=== PATIENT | female | born 1955 | race Caucasian/White ===

== ENCOUNTER → 2016-04-25 | Outpatient (CLI) | payer BC ==
[~2016-04-25] MED LIST: VITAMIN D PO
== END | disposition home or self-care (01) ==
LOC: C.MAMM 07:46
PROVIDERS: ATTEND Family Medicine
DX: M85.80 Other specified disorders of bone density and structure, unspecified site (principal); Z78.0 Asymptomatic menopausal state

== ENCOUNTER → 2016-07-10 | Day surgery (SDC) | payer BC ==
[2016-06-28 14:01] VITALS: Ht 165.1 cm; Wt 65.9 kg
[~2016-07-10] VITALS: Ht 165.1 cm; Wt 65.9 kg
[~2016-07-10] MED LIST changes: +500ML BSSPLUS 0.5ML EPI1:1000 IRRIG ONE; +ACETAMINOPHEN 325 MG TAB PO PRN; +ATROPINE SULFATE 0.1 MG/ML 5ML SYR IV PRN; +ATROPINE SULFATE 1% OP OINT PER APPLICATION CHARGE ONE; +BSS FLUSH ONE; +BUPIVACAINE HCL 0.75% 10 ML AMP/VIAL ONE; +CEFAZOLIN SOD 1 GM VIAL ONE; +DEXAMETHASONE SOD INJ 4 MG/ML VIAL ONE; +EpHEDrine SULFATE INJ 50 MG/ML AMP IV PRN; +EpINEphrine INJ 1MG/ML AMP 1 MG/ML AMP ONE; +FENTANYL CITRATE INJ 50 MCG/1 ML 2 ML VIAL IV PRN; +FENTANYL CITRATE INJ 50 MCG/1 ML 2 ML VIAL ONE; +HYALURONIDASE HUMAN 150 UNIT/ML INJ ONE; +INDOCYANINE GREEN 25 MG/10 ML ONE; +LACTATED RINGER'S 1000ML 500 ML IV SCH; +LIDOCAINE HCL 2% 2 ML VIAL (20MG/ML) ONE; +LIDOCAINE MPF 4% INJ INJ ONE; +MIDAZOLAM HCL 1 MG/ML 2ML VIAL ONE; +NEOMYCIN/POLYMYX/DEXAMETH OP OINT PER APP CHARGE ONE; +OCUCOAT 1 ML SOLN IO ONE; +ONDANSETRON INJ 2 MG/ML 2 ML VIAL IV PRN; +PHENYLEPHRINE HCL 10% OP SOLN PER DROP CHARGE ONE; +PROPARACAINE 0.5% OP SOLN PER DROP CHARGE OPR SCH; +PROPOFOL IV EMULSION 10 MG/ML 20 ML VIAL IV ONE; +TIMOLOL MALEATE 0.5% OP SOLN PER DROP CHARGE ONE
--- NOTE | 2016-07-10 09:49 | History & Physical Bridge - [place] ---
H&P Re-Evaluation Bridge Note: pt has a macular hole in the right eye and is here for vitrectomy of the right eye. I have examined the patient, reviewed the History & Physical and in the interval since the performance of the History & Physical I have noted the following changes of clinical significance: No changes noted
[2016-07-10] MEDS: PHENYLEPHRINE HCL 2.5% OP SOLN PER DROP CHARGE OPR SCH ×2 (10:54→10:59)
[2016-07-10] MEDS: TROPICAMIDE 1% OP SOLN PER DROP CHARGE OPR SCH ×2 (10:55→11:00)
--- NOTE | 2016-07-10 12:51 | [facility] Operative Report ---
Operative Report Date of Service Jul 10, 2016. Operative Report PREOPERATIVE DIAGNOSIS: Macular hole, right eye. ICD10 CODE: H35.341 POSTOPERATIVE DIAGNOSIS: same. PROCEDURE: 1. Pars plana vitrectomy, 23 gauge. 2. Membrane peeling of the internal limiting membrane. 3. Fluid-air exchange. 4. Air-gas exchange w/ SF6 20 %. All to the right eye. CPT CODE: 68986 SURGEON: Baljinder Woodard D.O. COMPLICATIONS: None. ESTIMATED BLOOD LOSS: None. SPECIMENS: None. ANESTHESIA: Retrobulbar block and MAC. INDICATIONS FOR PROCEDURE: The patient has a macular hole that is visually significant. Vitrectomy surgery is indicated to decrease risk of vision loss and potentially improve vision. CONSENT: The risks, benefits and alternatives were discussed with the patient including but not limited to decreased visual acuity, failure to achieve desired results, loss of the eye, infection, pain, glaucoma, lens changes, retinal tears, retinal detachment, the need for more procedures, drooping of the eyelid, blindness, and double vision. The patient is aware of risks and consents to the surgery. Consent is signed and on the chart. OPERATION AND FINDINGS: The patient was brought to the operating room where the patient was identified by name, date, and medical record number. The surgical site was confirmed with the informed written consent. The patient was sedated by the anesthesiology team after which a 50:50 mixture of 4% lidocaine and 0.75% bupivacaine with hyaluronidase was administered in a standard retrobulbar fashion. A total of 4 ml was administered without difficulty. The patient was then prepped and draped in the usual sterile manner for retinal surgery. A wire lid speculum was placed and an Zak 23-gauge trocar cannula system was employed. The inferior temporal trocar cannula was first placed in an angled fashion 3.75mm posterior to the surgical limbus and the infusion cannula was inserted into this cannula after which the intravitreal position was verified prior to turning the infusion on. Two more trocar cannulas were then inserted in an angled fashion, one in the superior temporal, and one in the superior nasal quadrant both 3.75mm posterior to the surgical limbus. A light pipe and vitrector were then introduced into the eye and the BIOM wide angle viewing system was brought into place. Standard core vitrectomy was performed and the vitreous was insured to be totally detached from the posterior pole with the aid of the vitrector. Next 0.05ml of indocyanine green was placed over the macular surface to stain the internal limiting membrane. This was washed from the eye after 10 seconds. At this point a flat contact lens was placed on the surface of the eye and a flex scraper and ILM forceps were then used to gently peel the internal limiting membrane surrounding the macular hole without difficulty. At this point scleral depression was performed for 360 degrees and no retinal tears or detachments were noted. A soft tip cannula was used to perform a fluid- air exchange. Next, SF6 20% was injected in through the infusion cannula for a complete gas fill of the eye. The trocar cannulas were then removed and found to be air tight. The intraocular pressure was found to be within normal limits by palpation and subconjunctival injections of Kefzol and dexamethasone were administered inferiorly and superiorly. The wire lid speculum was removed. Maxitrol and timolol were applied to the surface of the eye. A light patch and shield were taped over the surface of the eye and the patient left the Operating Room in stable condition having tolerated the procedure well. DISPOSITION: A gas bracelet was placed on the patients wrist. The patient was instructed to maintain a face down position overnight. The patient is to call immediately if there are any problems overnight. I attest to the content of the Intraoperative Record and any orders documented therein. Any exceptions are noted below.
--- NOTE | 2016-07-10 12:54 | Discharge Instructions-SurgCtr ---
Discharge Instructions Date of Service Jul 10, 2016. Visit Reason for Visit: Right Eye Macular Hole Discharge Discharge Diagnosis / Problem: same Discharge Goals Goal(s): Improve function Activity Recommendations Activity Limitations: per Instructions/Follow-up section Anesthesia . Post Anesthesia Instructions: If you have had General Anesthesia or IV Sedation: * Do not drive today. * Resume driving when surgeon permits. * Do not make important decisions or sign legal documents today. * Call surgeon for: 1. Temperature elevations greater than 101 degrees F. 2. Uncontrollable pain. 3. Excessive bleeding. 4. Persistent nausea and vomiting. 5. Medication intolerance (nausea, vomiting or rash). * For nausea and vomiting use only clear liquids such as: tea, soda, bouillon until nausea subsides, then gradually increase diet as tolerated. * If you have any concerns or questions, call your surgeon's office. If physician is unavailable and it is an emergency, call 911 or go to the nearest emergency room. . Instructions / Follow-Up Instructions / Follow-Up * May take Tylenol if needed for discomfort. * Do NOT lay flat on back and position head as follows: face down/ chin down as much as possible. Sleep left side down with head turned toward floor or sleep on stomach with head turned to right. * Do NOT remove green bracelet until instructed to do so by your surgeon and follow these precautions: * No air travel * No travel above 2500 feet * No nitrous oxide (N2O). * Do NOT remove eye shield. * NO straining, heavy lifting (>15 pounds) or bending below waist. * Avoid getting water or soap directly into operative eye. * Do NOT rub eye. If you experience increasing eye pain not relieved by medication, please contact us immediately at [phone]. If you are unable to reach someone at the above number, call [phone] and ask to speak with the EYE DOCTOR SALES CLERK FOOD. Inform them that you are a Dr. Woodard patient who had recent surgery. Diet Recommendations Home Diet: resume previous diet Procedures Procedures Performed: Right Eye 23 Gauge Vitrectomy with SF6 Gas Insertion Pending Studies Studies pending at discharge: no Medical Emergencies . Who to Call and When: Medical Emergencies: If at any time you feel your situation is an emergency, please call 911 immediately. . Non-Emergent Contact Non-Emergency issues call your: Tariff Supervisor . . "Provider Documentation" section prepared by Baljinder Woodard.
[2016-07-10 12:55] VITALS: TEMP 36.3
[2016-07-10 13:19] VITALS: BP 115/79; PULSE 68; O2SAT 97
--- NOTE | 2016-07-10 13:29 | Anesthesia Progress Nt - [facility] ---
Anesthesia Post Op Note Date & Time Jul 10, 2016 at 13:28 Vital Signs Pain Intensity: 0 Vital Signs Past 12 Hours Date Time Temp Pulse Resp B/P Pulse Ox O2 Delivery O2 Flow Rate FiO2 07/10/16 13:19 68 18 115/79 97 Room Air 07/10/16 12:55 36.3 70 18 109/73 97 Room Air 07/10/16 10:48 36.4 77 18 117/82 97 Room Air Notes Mental Status: alert / awake / arousable, participated in evaluation Pt Amnestic to Procedure: Yes Nausea / Vomiting: adequately controlled Pain: adequately controlled Airway Patency, RR, SpO2: stable & adequate BP & HR: stable & adequate Hydration State: stable & adequate Anesthetic Complications: no major complications apparent
== END | disposition home or self-care (01) ==
LOC: X.SURG 10:25
PROVIDERS: ATTEND Ophthalmology
DX: H35.341 Macular cyst, hole, or pseudohole, right eye (principal); E78.5 Hyperlipidemia, unspecified

== ENCOUNTER → 2016-12-21 | Outpatient (CLI) | payer BC ==
[~2016-12-21] MED LIST changes: -500ML BSSPLUS 0.5ML EPI1:1000 IRRIG ONE; -ACETAMINOPHEN 325 MG TAB PO PRN; -ATROPINE SULFATE 0.1 MG/ML 5ML SYR IV PRN; -ATROPINE SULFATE 1% OP OINT PER APPLICATION CHARGE ONE; -BSS FLUSH ONE; -BUPIVACAINE HCL 0.75% 10 ML AMP/VIAL ONE; -CEFAZOLIN SOD 1 GM VIAL ONE; -DEXAMETHASONE SOD INJ 4 MG/ML VIAL ONE; -EpHEDrine SULFATE INJ 50 MG/ML AMP IV PRN; -EpINEphrine INJ 1MG/ML AMP 1 MG/ML AMP ONE; -FENTANYL CITRATE INJ 50 MCG/1 ML 2 ML VIAL IV PRN; -FENTANYL CITRATE INJ 50 MCG/1 ML 2 ML VIAL ONE; -HYALURONIDASE HUMAN 150 UNIT/ML INJ ONE; -INDOCYANINE GREEN 25 MG/10 ML ONE; -LACTATED RINGER'S 1000ML 500 ML IV SCH; -LIDOCAINE HCL 2% 2 ML VIAL (20MG/ML) ONE; -LIDOCAINE MPF 4% INJ INJ ONE; -MIDAZOLAM HCL 1 MG/ML 2ML VIAL ONE; -NEOMYCIN/POLYMYX/DEXAMETH OP OINT PER APP CHARGE ONE; -OCUCOAT 1 ML SOLN IO ONE; -ONDANSETRON INJ 2 MG/ML 2 ML VIAL IV PRN; -PHENYLEPHRINE HCL 10% OP SOLN PER DROP CHARGE ONE; -PROPARACAINE 0.5% OP SOLN PER DROP CHARGE OPR SCH; -PROPOFOL IV EMULSION 10 MG/ML 20 ML VIAL IV ONE; -TIMOLOL MALEATE 0.5% OP SOLN PER DROP CHARGE ONE
--- NOTE | 2016-12-21 16:20 | MAMMOGRAPHY REPORT ---
BILATERAL DIGITAL SCREENING MAMMOGRAM WITH CAD: 12/21/2016 CLINICAL HISTORY: Routine screening. Patient has no complaints. TECHNIQUE: Current study was also evaluated with a Computer Aided Detection (CAD) system. Bilateral CC and MLO views were obtained. COMPARISON: Comparison is made to exams dated: 07/21/2014 mammogram, 02/14/2013 mammogram, 07/05/2011 m ammogram, 06/09/2010 mammogram, 01/28/2010 mammogram, and 04/13/2009 ultrasound - [facility] enter. BREAST COMPOSITION: There are scattered areas of fibroglandular density in both breasts. FINDINGS: No suspicious masses, calcifications, or areas of architectural distortion are noted in ei ther breast. There has been no significant interval change compared to prior exams. Bilateral benign -appearing calcifications are not significantly changed. IMPRESSION: ACR BI-RADS CATEGORY 2: BENIGN There is no mammographic evidence of malignancy. A 1 year screening mammogram is recommended. The pa tient will receive written notification of the results. Approximately 10% of breast cancers are not detected with mammography. A negative mammographic report should not delay biopsy if a clinically suggestive mass is present. Brunilda Mendenhall M.D. /:12/21/2016 15:12:50 Cross Country Coach: Shayna LARA,Lou, M, [facility] letter sent: Normal 1/2 BI-RADS Code: ACR BI-RADS Category 2: Benign
== END | disposition home or self-care (01) ==
LOC: C.MAMM 14:52
PROVIDERS: ATTEND Family Medicine
DX: Z12.31 Encounter for screening mammogram for malignant neoplasm of breast (principal)

== ENCOUNTER 2018-11-08 06:29 | Inpatient (IN) ==
--- NOTE | 2018-10-07 08:06 | PAT Medication Instructions ---
Medication Instructions Date of Service October 07, 2018 Home Medications ibuprofen [Advil] 600 mg PO QAM ASK your surgeon for instructions ibuprofen [Advil] 600 mg PO QAM Take morning of surgery NOTHING TO EAT OR DRINK AFTER MIDNIGHT Other Notes If you have any questions please call us at [phone] or [phone] or [phone] or [phone]
--- NOTE | 2018-10-07 11:44 | Anesthesiology Consultation ---
Date of Service October 07, 2018 Assessment & Plan (1) Encounter for pre-operative examination: Chart Review Chart Review: Acceptable Risk for Surgery and Patient seen in Pre Admission Testing Consults Requested none Teaching & Discussion Pre-Anesthesia Teaching/Discussion Notes: Instructed NPO after midnight before surgery, except medications with 15 cc of water. Medication instructions provided according to the PAT guidelines. History Surgery Operation Date: 11/08/18 08:50 Proposed Procedures p Left Anterior Total Hip Replacement - Yoan Díaz DO Height/Weight Height: 5 ft 5 in Weight: 68.4 kg Allergies Allergy/AdvReac Type Severity Reaction Status Date / Time erythromycin base Allergy Unknown GI ILLNESS Verified 10/02/18 09:25 aspirin AdvReac Nose Bleed Verified 10/02/18 09:25 Medications Home Medications Medication Instructions Recorded Confirmed Last Taken ibuprofen [Advil] 600 mg PO QAM 10/02/18 10/02/18 Unknown Past Medical History Medical History Osteoarthritis Exercise / Class Metabolic Activity II 4-5 Yardwork/Stairs/Walk up hill (Rode bike 70 miles last week. Gardening. Not walking much due to hip. Able to climb FOS. Denies CP or SOB. ) Past Surgical History Surgical History History of arthroscopy of right knee History of cataract surgery History of colonoscopy History of dilatation and curettage History of surgery REPAIR OF MACULAR TEAR - RT EYE Nausea and vomiting after administration of anesthetic agent Past Anesthesia History No Hx of Anesthesia Complications and No Family Hx of Anesthesia Complications History of PONV No Hx of Motion Sickness and History of PONV Social History Smoking Status: Never smoker Do You Dip or Chew Tobacco: No Hx Alcohol Use: Yes Alcohol type: beer, wine and hard liquor alcohol intake frequency: a few times a week Hx Substance Use: No substance use type: does not use Review of Systems Patient denies chest pain, shortness of breath, dyspnea on exertion, reflux, cough, wheezing, palpitations. +Joint Pain (Hip) Physical Exam Vital Signs BP: 115/79 P: 69 R: 16 T: 98.5 SPO2: 97% on RA ENMT Thyromental Distance: < 3.5 Finger Breadths (3) Mallampati Class: I Neck normal visual inspection and trachea midline; neck extension not limited Respiratory normal respiratory effort Auscultation: lungs clear to auscultation bilaterally Cardiovascular Rate/Rhythm: regular rate and regular rhythm Heart Sounds: no murmur Vessels: no carotid bruit Neurologic moves all extremities Psychiatric Orientation: alert and oriented x 3 Testing Laboratory Results 10/07/18 11:58 10/07/18 11:58 PT 10.2 Seconds (9.0-12.0) 10/07/18 11:58 INR 1.0 (0.9-1.1) 10/07/18 11:58 APTT 24.7 Seconds (21.0-31.0) 10/07/18 11:58 Blood Type O Positive 10/07/18 11:58 Antibody Screen NEGATIVE 10/07/18 11:58 Electrocardiogram Date: 07/22/18 Findings: + NSR @ (65) and + no change from (06/28/16) Chest X-Ray Date: 10/07/18 Findings: + NAD
[2018-10-07 12:34] LABS: Basophils # (auto) 0.02 K/uL (0-0.2); Basophils % (auto) 0.4 %; Eosinophils % (auto) 2.2 %; Hematocrit (blood only) 39.6 % (37-47); Hemoglobin 13.1 g/dL (12.0-16.0); Immature Granulocytes # (auto) 0.01 K/uL (0.00-0.02); Immature Granulocytes % (auto) 0.2 %; Lymphocytes % (auto) 30.4 %; Mean Corpuscular Hgb Conc 33.1 g/dL (32-36); Mean Platelet Volume 10.4 fL (7.4-10.4); Monocytes # (auto) 0.54 K/uL (0.11-0.59); Monocytes % (auto) 11.7 %; Neutrophils # (auto) 2.54 K/uL (1.4-6.5); Neutrophils % (auto) 55.1 %; Platelet Count 197 K/uL (130-400); RDW Coefficient of Variation 12.9 % (11.5-14.5); RDW Standard Deviation 41.6 fL (36.4-46.3); White Blood Count 4.61 K/uL (4.8-10.8)
--- NOTE | 2018-10-07 12:37 | XRay Report ---
XR chest Pre-admission PA/Lat CLINICAL HISTORY: Preoperative chest COMPARISON STUDY: No previous studies for comparison. FINDINGS: The cardiac and mediastinal contours are normal. There is no evidence of focal pulmonary co nsolidation. There is no evidence of failure. No pleural effusions are visualized.[ IMPRESSION: No active disease in the chest. Electronically signed by: William Molina M.D. 10/07/2018 12:35 PM
[2018-10-07 12:48] LABS: Partial Thromboplastin Ratio 0.9; Partial Thromboplastin Time 24.7 Seconds (21.0-31.0); Prothrombin Time 10.2 Seconds (9.0-12.0)
[2018-10-07 14:23] LABS: BUN Creatinine Ratio 20.2 (10-20); Calcium 8.6 mg/dl (8.5-10.1); Creatinine Clr Calc Pharmacy 51.5 ml/min; Est GFR (African American) 70.2; Est GFR (Non-African American) 60.5; Potassium 4.6 mmol/L (3.5-5.1)
--- NOTE | 2018-11-06 07:32 | History & Physical Report ---
Date of Service November 06, 2018 Assessment & Plan (1) Osteoarthritis of left hip: We will proceed with a left anterior total hip arthroplasty. Postoperatively she will be placed on aspirin for DVT prophylaxis. I am aware of her allergy but she said she had a mild nosebleed once in the past. She is willing to take the aspirin. She will be kept overnight in the hospital for postoperative medical management. She will use energy physical therapy upon discharge. Present on Admission?: Yes History of Present Illness Chief Complaint: Primary osteoarthritis of the left hip Primary Care Provider: Troy Benites MD Ivy is a pleasant 63-year-old female who is been dealing with a several year history of chronic left hip and groin pain. X-rays and clinical examination have been diagnostic for primary osteoarthritis of the left hip. After failing conservative treatment, she has elected to proceed with a left total hip arthroplasty. Allergies Allergy/AdvReac Type Severity Reaction Status Date / Time erythromycin base Allergy Unknown GI ILLNESS Verified 10/02/18 09:25 aspirin AdvReac Nose Bleed Verified 10/02/18 09:25 Home Medications Home Medications Medication Instructions Recorded Confirmed Type ibuprofen [Advil] 600 mg PO QAM 10/02/18 10/02/18 History Past Med/Surg History Medical History Osteoarthritis Surgical History History of arthroscopy of right knee History of cataract surgery History of colonoscopy History of dilatation and curettage History of surgery REPAIR OF MACULAR TEAR - RT EYE Nausea and vomiting after administration of anesthetic agent Social History Preferred Language: Amharic Communication Ability: Effective Senior Wind Energy Consultant Required: No Beliefs That Will Affect Care: None Current Living Situation: Spouse Other Information That Helps Us Care for You: No Feels Safe at Home: Yes Safety Concerns: Feels Safe At This Time Smoking Status: Never smoker Do You Dip or Chew Tobacco: No Second Hand Exposure: Yes ( A CHILD) Hx Alcohol Use: Yes Alcohol type: beer, wine and hard liquor Hx Substance Use: No Review of Systems All systems reviewed & are unremarkable except as noted in HPI & below Physical Exam Constitutional: WD/WN, vitals as above Eyes: PERRL, conjunctivae normal, anicteric sclerae ENMT: external ear and nose normal, oropharynx normal Neck: trachea midline, no thyromegaly Respiratory: normal respiratory effort Cardiovascular: RRR, no murmur, no edema Gastrointestinal (Abdomen): normal bowel sounds, soft, nontender, no hepatosplenomegaly Musculoskeletal: Physical examination of the left hip reveals decreased range of motion with flexion, internal and external rotation. There is significant groin pain with forced internal rotation of the hip his leg lengths are essentially equal. Psychiatric: A+Ox3, euthymic affect Results & Data Diagnostic Findings Radiographs of the left hip and pelvis demonstrate advanced osteoarthritis with joint space narrowing osteophyte formation and [id number] articulation.
[~2018-11-08 06:29] MED LIST changes: +ACETAMINOPHEN 500 MG TAB PO SCH; +BUPIVACAINE LIPOSOME/PF 266 MG, BUPIVACAINE/EPINEPHRINE 50 ML, SODIUM CHLORIDE 0.9% 30 ... INFIL SCH; +CEFAZOLIN 2000MG 2,000 MG/15 ML SYR IV SCH; +FAMOTIDINE 20 MG TAB PO SCH; +GABAPENTIN 300 MG CAP PO SCH; +LR 500ML BOLUS IV SCH; +LR 500ML BOLUS, THEN 15ML/HR IV SCH; +LR 60ML/HR IV SCH; +ROPIVACAINE 0.5% HCL/PF 150 MG, BUPIVACAINE 0.5% MPF 30 ML, EPINEPHrine 30MG/30ML (OR U... INFIL SCH; +SCOPOLAMINE 1.5 MG TDSY TD SCH; +TRANEXAMIC ACID 1,000 MG **IV Pre-op IV SCH; -VITAMIN D PO
[2018-11-08] MEDS ORDERED: TRANEXAMIC ACID 1,000 MG **IV Intra-op IV SCH (06:30)
--- NOTE | 2018-11-08 06:58 | History & Physical Bridge Note ---
Date of Service November 08, 2018 History & Physical Bridge Note I have examined the patient, reviewed the History & Physical and in the interval since the performance of the History & Physical I have noted the following changes of clinical significance: no changes noted
[2018-11-08] MEDS ORDERED: BUPIVACAINE 0.5 % 5 MG/1 ML PF 10ML VIAL ONE (07:17)
[2018-11-08] MEDS ORDERED: ORTHO JOINT ANESTHETIC ONE (07:30)
[2018-11-08] MEDS ORDERED: fentaNYL citrate 100 MCG/2 ML VIAL ONE (07:39)
[2018-11-08] MEDS ORDERED: MIDAZOLAM HCL 1 MG/ML 2ML VIAL ONE ×2 (07:39→08:47)
[2018-11-08] MEDS ORDERED: fentaNYL citrate 100 MCG/2 ML VIAL IV PRN (08:42)
[2018-11-08] MEDS ORDERED: ATROPINE SULFATE 0.1 MG/ML 10ML SYR IV PRN (08:42)
[2018-11-08] MEDS ORDERED: LABETALOL HCL IV 5 MG/ML 20ML IV PRN (08:42)
[2018-11-08] MEDS ORDERED: ONDANSETRON INJ 2 MG/ML 2 ML VIAL IV PRN ×2 (08:42→12:15)
[2018-11-08] MEDS ORDERED: ePHEDrine sulfate 50 MG/ML AMP IV PRN (08:42)
[2018-11-08] MEDS ORDERED: PHENYLEPHRINE 100MCG/ML 5ML SYR IV PRN (08:42)
[2018-11-08] MEDS ORDERED: PROPOFOL IV EMULSION 10 MG/ML 20 ML VIAL IV ONE (09:00)
[2018-11-08] MEDS ORDERED: ONDANSETRON INJ 2 MG/ML 2 ML VIAL ONE (09:00)
[2018-11-08] MEDS ORDERED: LIDOCAINE HCL 2% 2 ML VIAL/AMP(20MG/ML) INFIL ONE (09:00)
--- NOTE | 2018-11-08 10:13 | Operative Report ---
Post Operative Report Pre & Post Diagnosis Operation Date: 11/08/18 08:40 Pre-Op Diagnosis: Left Hip Degenerative Joint Disease Post-Op Diagnosis: Left Hip Degenerative Joint Disease Procedure Operation Date: 11/08/18 08:40 Actual Procedures p Left Anterior Total Hip Replacement(Left) - Yoan Díaz DO Surgeon Yoan Díaz DO Assembler Garment Form Yoan Stark PAC Estimated Blood Loss 200 Findings Consistent with Post-Op Diagnosis Specimens Left femoral head Complications none Disposition Disposition: Recovery Room Indications Ivy is a pleasant 63-year-old female who presented my office with complaints of chronic increasing left hip and groin pain. X-rays and clinical examination were diagnostic for primary osteoarthritis of the left hip. After failing conservative treatment, she elected to proceed with a left anterior total hip arthroplasty. Description of Procedure Implants used Biomet Taperloc total hip arthroplasty system with a size 11 standard offset Taperloc stem, a 46 mm G7 cup with a 25mm screw, an E1 polyethylene liner, a 32 mm ceramic head with a 0 neck. Patient arrived at the hospital for the above procedure. They were seen in the preoperative holding area and the operative extremity was identified and signed. They were given a spinal anesthetic. They were given a preoperative antibiotic and TXA. They were taken back To the operating room and laid on the table in the supine position. The leg was brought out through a Puristst leg positioner. The hip was then prepped and draped in sterile fashion. A timeout was done and the patient in upper extremities properly identified. An anterior approach was used. Dissection was taken down through the fascia and the tensor muscle belly was retracted laterally and the rectus was retracted medially. The circumflex vessels were identified and ligated. The capsule was then incised and tagged for later repair. The femoral neck was then cut and the femoral head was removed. The acetabulum was exposed. Time was spent doing a complete circumferential labral release. Sequential reaming of the acetabulum up to a size 45 reamer was done. Final reamings were done under fluoroscopy to ensure appropriate version. A Biomet 46 mm G7 cup was then impacted into place. A single 25 mm screw was placed. The E1 polyethylene liner was then snapped into place. Surrounding soft tissues were then injected with 100 cc of an orthopedic pain control cocktail. The proximal femur was then exposed. Sequential broaching up to a size 11 broach was done. Off that broach a size 32 head with a 0 neck was trialed. The hip was reduced and fluoroscopic images showed anatomic alignment of the implants in acceptable length. The broach was removed. The final size Taperloc stem was then impacted into place. A ceramic 32 mm head with a 0 neck was then impacted into place in the hip was reduced. Final fluoroscopic images showed anatomic reduction of the hip. The capsule was then closed with #1 Vicryl suture. A dilute betadyne lavage was then done for 3 minutes. The joint was then irrigated with normal saline solution. The fascia was closed with #1 PDS suture. Skin was closed with 2-0 Vicryl, shu, and a Nicole VAC dressing. The patient was then transferred to a hospital bed and taken to the post anesthesia care unit in stable condition. They tolerated the procedure well. I attest to the content of the Intraoperative Record and any orders documented therein. Any exceptions are noted below.
[2018-11-08] MEDS ORDERED: PHENYLEPHRINE 100MCG/ML 5ML SYR ONE (10:30)
[2018-11-08] MEDS ORDERED: ePHEDrine sulfate 50 MG/ML SYR ONE (10:30)
--- NOTE | 2018-11-08 11:10 | Fluoroscopy Report ---
FL hip LT 1V CLINICAL HISTORY: LEFT ANTERIOR HIPhip replacement COMPARISON STUDY: None FLUOROSCOPY TIME: 32 seconds NUMBER OF FLUOROSCOPIC IMAGES: 2 FINDINGS: Anatomic alignment post total left hip arthroplasty be an anterior approach. IMPRESSION: Anatomic alignment posttotal left hip arthroplasty. The above report was generated using voice recognition software. It may contain grammatical, syntax or spelling errors. Electronically signed by: Adis Worthy M.D. 11/08/2018 11:09 AM
--- NOTE | 2018-11-08 11:28 | Anesthesiology Progress Note ---
Date of Service November 08, 2018 Anesthesia Post Procedure Vital Signs Vital Signs: Temp Pulse Pulse Resp BP Pulse Ox 11/08/18 11:20 37.1 C 72 15 109/69 95 11/08/18 11:10 37.1 C 76 15 114/69 95 11/08/18 11:00 36.6 C 76 16 107/67 98 11/08/18 10:50 36.6 C 84 12 116/74 99 11/08/18 10:44 36.6 C 87 16 115/71 96 11/08/18 06:45 36.5 C 80 18 122/90 98 Pain Intensity Left Hip: Pain Intensity: 1 Transfer of Care Handoff Completed per policy Notes Mental Status: alert / awake / arousable Patient Amnestic to Procedure: Yes Nausea / Vomiting: adequately controlled Pain: adequately controlled Airway Patency, RR, SpO2: stable & adequate BP & HR: stable & adequate Hydration State: stable & adequate Neuraxial Anesthesia: was administered and sensory block is resolving Anesthetic Complications: no major complications apparent and Pt Satisfied with anesthetic care
--- NOTE | 2018-11-08 11:32 | XRay Report ---
XR hip 1V LT w pelvis CLINICAL HISTORY: Degenerative arthritis. Postop hip arthroplasty. COMPARISON: May 04, 2015 DISCUSSION: There are postsurgical changes of a total left hip arthroplasty. The acetabular and femor al components appear well seated. There is no dislocation. Overlying skin shu are evident. There is air within the soft tissues consistent with recent surgery. IMPRESSION: Postsurgical changes of a total left hip arthroplasty. Electronically signed by: William Molina M.D. 11/08/2018 11:31 AM
[2018-11-08] MEDS ORDERED: HYDROmorphone INJ 0.5 MG/0.5 ML SYR IV PRN (12:15)
[2018-11-08] MEDS ORDERED: OXYCODONE HCL IR 5 MG TAB (IMMEDIATE RELEASE) PO PRN (12:15)
[2018-11-08] MEDS ORDERED: MAGNESIUM HYDROXIDE SUSP 30 ML UDC PO PRN (12:15)
[2018-11-08] MEDS ORDERED: BISACODYL 10 MG SUPP PR PRN (12:15)
[2018-11-08] MEDS ORDERED: NALOXONE HCL 0.4 MG/1 ML VIAL/CARP IV PRN (12:15)
[2018-11-08] MEDS ORDERED: METOCLOPRAMIDE HCL INJ 5 MG/ML 2 ML VIAL IV PRN (12:15)
[2018-11-08] MEDS: ACETAMINOPHEN 500 MG TAB PO SCH ×2 (13:38→21:21)
[2018-11-08] MEDS: KETOROLAC 30 MG/ML VIAL IV SCH ×2 (13:38→21:21)
[2018-11-08] MEDS: SODIUM CHLORIDE 0.9% 1000ML 1,000 ML IV SCH (13:38)
[2018-11-08] MEDS: CEFAZOLIN 2000MG 2,000 MG/15 ML SYR IV SCH ×2 (15:36→23:54)
[2018-11-08] MEDS ORDERED: CHECK SCOPOLAMINE PATCH PLACEMENT SCH (16:00)
[2018-11-08] MEDS ORDERED: SENNA 8.6 MG TAB PO SCH (21:00)
[2018-11-08] MEDS: DOCUSATE SODIUM 100 MG CAP PO SCH (21:21)
[2018-11-08] MEDS: ASPIRIN 81 MG ECTAB PO SCH (21:21)
[2018-11-08] MEDS: CALCIUM CARBONATE 500 MG CHEWABLE TAB PO PRN ×2 (21:22→23:55)
[2018-11-09] MEDS: SODIUM CHLORIDE 0.9% 1000ML 1,000 ML IV SCH (00:35)
[2018-11-09] MEDS: KETOROLAC 30 MG/ML VIAL IV SCH ×2 (02:05→08:48)
[2018-11-09] MEDS: ACETAMINOPHEN 500 MG TAB PO SCH (05:43)
[2018-11-09 06:26] LABS: Basophils # (auto) 0.01 K/uL (0-0.2); Basophils % (auto) 0.1 %; Eosinophils % (auto) 1.1 %; Hematocrit (blood only) 32.5 % (37-47); Hemoglobin 10.8 g/dL (12.0-16.0); Immature Granulocytes # (auto) 0.02 K/uL (0.00-0.02); Immature Granulocytes % (auto) 0.2 %; Lymphocytes # (auto) 1.29 K/uL (1.2-3.4); Lymphocytes % (auto) 13.8 %; Mean Corpuscular Hgb Conc 33.2 g/dL (32-36); Mean Corpuscular Volume 88.8 fL (80-100); Mean Platelet Volume 10.4 fL (7.4-10.4); Monocytes # (auto) 0.98 K/uL (0.11-0.59); Monocytes % (auto) 10.5 %; Neutrophils # (auto) 6.97 K/uL (1.4-6.5); Neutrophils % (auto) 74.3 %; Platelet Count 171 K/uL (130-400); RDW Coefficient of Variation 12.8 % (11.5-14.5); RDW Standard Deviation 41.3 fL (36.4-46.3); Red Blood Count 3.66 M/uL (4.2-5.4); White Blood Count 9.37 K/uL (4.8-10.8)
[2018-11-09 07:02] LABS: BUN Creatinine Ratio 22.5 (10-20); Calcium 7.8 mg/dl (8.5-10.1); Creatinine Clr Calc Pharmacy 53.1 ml/min; Est GFR (African American) 72.8; Est GFR (Non-African American) 62.9; Potassium 3.6 mmol/L (3.5-5.1)
[2018-11-09] MEDS: ASPIRIN 81 MG ECTAB PO SCH (08:48)
[2018-11-09] MEDS: DOCUSATE SODIUM 100 MG CAP PO SCH (08:48)
[2018-11-09] MEDS ORDERED: MULTIVITAMIN TAB PO SCH (09:00)
--- NOTE | 2018-11-09 09:10 | Orthopedic Progress Note ---
Date of Service November 09, 2018 Assessment & Plan (1) Osteoarthritis of left hip: Overall she is doing very well. She is not having much pain in the left hip. She has been ambulating well around the nurses station. She will be seen by physical therapy this morning for ambulation and range of motion. She can be discharged home later this morning. She plans to use energy physical therapy upon discharge. She will follow-up with orthopedics in 2 weeks. Present on Admission?: Yes Subjective Ivy was seen and examined at bedside this morning. Overall she is doing very well. She is having very little pain in the left hip. She has been ambulating around the nurses station. She has no complaints. Physical Exam Musculoskeletal: On physical exam of the left hip, the Nicole VAC dressings to suction. She is active dorsiflexion plantarflexion of the left ankle. Sensations intact throughout. Results & Data Vital Signs (Past 12 Hours) Vital Signs Temp Pulse Resp BP Pulse Ox 11/09/18 07:00 36.6 C 65 16 95/59 L 96 11/09/18 03:55 36.9 C 71 16 102/64 98 11/08/18 22:50 36.6 C 68 16 102/64 97 Laboratory Results H & H 10/07/18 11/09/18 Range/Units 11:58 05:07 Hgb 13.1 10.8 L (12.0-16.0) g/dL Hct 39.6 32.5 L (37-47) % Coagulation 10/07/18 Range/Units 11:58 INR 1.0 (0.9-1.1) Diagnostic Findings Postoperative x-rays of the left hip show the prosthesis to be in anatomic alignment without any evidence of fracture, dislocation, or loosening. PG Care Time/CCT Total # of Minutes Spent Total Time Spent with Patient: Total time spent is greater than 50% in coordination of care (as documented) at patient's floor/unit and/or counseling patient:
--- NOTE | 2018-11-09 09:12 | Discharge Summary ---
Date of Service November 09, 2018 Admission HPI Per Admitting Provider Ivy is a pleasant 63-year-old female who is been dealing with a several year history of chronic left hip and groin pain. X-rays and clinical examination have been diagnostic for primary osteoarthritis of the left hip. After failing conservative treatment, she has elected to proceed with a left total hip arthroplasty. Specialty Data Orthopedic H & H 10/07/18 11/09/18 Range/Units 11:58 05:07 Hgb 13.1 10.8 L (12.0-16.0) g/dL Hct 39.6 32.5 L (37-47) % Coagulation 10/07/18 Range/Units 11:58 INR 1.0 (0.9-1.1) Discharge Data Consultations 11/09/18 08:00 Consult Case Management - Discharge Planning Routine Procedures Performed Operation Date: 11/08/18 08:40 Actual Procedures p Left Anterior Total Hip Replacement(Left) - Yoan Díaz DO Hospital Course (1) Osteoarthritis of left hip: On November 08, 2018 Ivy arrived at [facility] and underwent a left anterior total hip arthroplasty without complication. She had a spinal anesthetic. Postoperatively she was started on aspirin for DVT prophylaxis and discharged to general orthopedic floors. Her hospital course was uneventful. On postop day #1 her H&H was stable and her pain was well controlled. She was able to ambulate well with physical therapy. She was then discharged home with [facility]. She will follow-up with orthopedics in 2 weeks. Discharge Instructions Home Medications Medication Instructions Recorded Confirmed ibuprofen [Advil] 600 mg PO QAM 10/02/18 11/08/18 Previous Rx's Medication Instructions Recorded aspirin [Ecotrin Low Strength] 81 mg PO BID #84 tab 11/09/18 hydrocodone-acetaminophen 1 tab PO Q6H PRN #30 tab 11/09/18
== END 2018-11-09 11:49 | disposition home or self-care (01) | DRG 470 ==
LOC: ASU 06:29 → 3E 10:49